=== PATIENT | male | born 2000 | race Caucasian/White ===

== ENCOUNTER 2024-11-08 08:16 | Outpatient (CLI) | payer OTHER, SELFPAY | END 2024-11-08 08:17 | disposition home or self-care (01) | PROVIDERS: PCP Physician Assistant Medical; Visit Provider Physician Assistant Medical | DX: K52.9 Noninfective gastroenteritis and colitis, unspecified (principal); Z13.29 Encounter for screening for other suspected endocrine disorder; Z13.228 Encounter for screening for other metabolic disorders | CPT/HCPCS: 80053; 84443; 86231; 86258; 86364 ==